=== PATIENT | female | born 1990 | race African-American/Black ===

== ENCOUNTER 2024-11-04 08:30 | Inpatient (IN) | payer MEDICAID, OTHER ==
[~2024-11-04] VITALS: Ht 167.6 cm; Wt 85.6 kg
[2024-11-04 09:36] LABS: BASOPHILS % (AUTO) 0.5 % (0.0-2.0); EOSINOPHILS % (AUTO) 0.1 % (1.0-6.0); HEMATOCRIT 39.1 % (36-46); HEMOGLOBIN 13.1 g/dL (12.0-16.0); LYMPHOCYTES % (AUTO) 19.6 % (22.0-44.0); MEAN CORPUSCULAR HEMOGLOBIN 26.5 pg (26.0-34.0); MEAN CORPUSCULAR HGB CONC 33.4 G/dL (31.0-37.0); MEAN CORPUSCULAR VOLUME 79 fL (80-100); MONOCYTES # (AUTO) 0.7 K/uL (0.1-1.0); MONOCYTES % (AUTO) 7.2 % (2.0-9.0); NEUTROPHILS # (AUTO) 7.4 K/uL (1.8-7.7); NEUTROPHILS % (AUTO) 72.6 % (40.0-70.0); PLATELET COUNT (AUTO) 416 K/uL (150-450); RED BLOOD CELL COUNT(AUTO) 4.93 MIL/uL (4.00-5.20); RED CELL DISTRIBUTION WIDTH 16.6 % (11.5-14.5); WHITE BLOOD COUNT (AUTO) 10.2 K/uL (4.5-11.0)
[2024-11-04 09:41] LABS: ANION GAP 12 mmol/L (8-16); CALCIUM, TOTAL 8.9 mg/dL (8.8-10.5); CARBON DIOXIDE 27 mmol/L (22-29); CHLORIDE 103 mmol/L (98-107); CREATININE 1.07 mg/dL (0.60-1.30); GLOMERULAR FILTR. RATE CALC > 60 mL/min (>60); GLUCOSE,RANDOM 105 mg/dL (70-110); POTASSIUM 4.1 mmol/L (3.5-5.1); SODIUM SERUM 142 mmol/L (136-145); UREA NITROGEN, BLOOD 15 mg/dL (7-18)
[2024-11-04 09:48] LABS: ALCOHOL, BLOOD (SERUM) < 3 mg/dL (0-10)
[2024-11-04] MEDS ORDERED: LORazepam 2 MG TABLET PO PRN (16:45)
[2024-11-04] MEDS ORDERED: HALOPERIDOL 5 MG TABLET PO PRN (16:45)
[2024-11-04] MEDS ORDERED: ZOLPIDEM TARTRATE 10 MG TABLET PO PRN (16:45)
[2024-11-04 17:04] LABS: COVID AG,FIA SOURCE NASAL SWAB
[2024-11-04 17:22] LABS: SARS-COV2 (COVID) ANTIGEN,FIA Negative (Negative)
[2024-11-04 18:30] VITALS: O2SAT 98
[2024-11-04] MEDS ORDERED: HALOPERIDOL LACTATE 5 MG/ML VIAL ONE (21:43)
[2024-11-04] MEDS ORDERED: DiphenhydrAMINE HCL 50 MG/ML VIAL ONE (21:43)
[2024-11-04] MEDS ORDERED: LORazepam 2 MG/ML VIAL ONE (21:43)
[2024-11-04] MEDS: HALOPERIDOL LACTATE 5 MG/ML VIAL IM ONE (21:45)
[2024-11-04] MEDS: LORazepam 2 MG/ML VIAL IM ONE (21:45)
[2024-11-04] MEDS: DiphenhydrAMINE HCL 50 MG/ML VIAL IM ONE (21:45)
[2024-11-05] MEDS ORDERED: INFLUENZA VIRUS VACCINE TVS (6MO+) 2024-25/PF 45 MCG/0.5 ML SYRINGE IM. ONE (05:45)
[2024-11-05] MEDS ORDERED: ACETAMINOPHEN 325 MG TABLET PO PRN (06:15)
[2024-11-05] MEDS ORDERED: MAGNESIUM HYDROXIDE SUSPENSION 30 ML UDCUP PO PRN (06:15)
[2024-11-05] MEDS ORDERED: CloNIDine HCL 0.1 MG TABLET PO PRN (06:15)
[2024-11-05] MEDS ORDERED: NICOTINE 14 MG/24 HOUR PATCH TD PRN (06:15)
[2024-11-05] MEDS ORDERED: ONDANSETRON 4 MG TABLET PO PRN (06:15)
[2024-11-05] MEDS ORDERED: PETROLATUM,WHITE 28 GM JELLY TP PRN (06:15)
[2024-11-05] MEDS ORDERED: IBUPROFEN 400 MG TABLET PO PRN (06:15)
[2024-11-05] MEDS ORDERED: MAG HYDROX/ALUMINUM HYD/SIMETH ES 30 ML SUSPENSION UDCUP PO PRN (06:15)
[2024-11-05] MEDS ORDERED: GuaiFENesin/D-METHORPHAN [SUGAR-FREE] 200-20MG/10 ML SYRUP UDCUP PO PRN (06:15)
[2024-11-05] MEDS ORDERED: ALBUTEROL SULFATE HFA 90 MCG/PUFF 8 GM INHALER IH PRN (06:15)
[2024-11-05] MEDS ORDERED: LOPERAMIDE HCL 2 MG CAPSULE PO PRN (06:15)
[2024-11-05] MEDS ORDERED: DOCUSATE SODIUM 100 MG CAPSULE PO PRN (06:15)
[2024-11-05 08:10] VITALS: BP 100/60; PULSE 79; RESP 16; TEMP 98; O2SAT 95
[2024-11-05 20:08] VITALS: BP 100/92; PULSE 70; RESP 19; TEMP 97.7; O2SAT 97
[2024-11-05] MEDS: ARIPiprazole 10 MG TABLET PO SCH (20:19)
[2024-11-05] MEDS: PALIPERIDONE 6 MG ER TABLET PO SCH (20:19)
[2024-11-06 08:35] VITALS: BP 87/46; PULSE 79; RESP 16; TEMP 97.6; O2SAT 96
[2024-11-06 08:54] LABS: HEMOGLOBIN A1C 5.5 % (3.8-5.6)
[2024-11-06 09:12] LABS: THYROID STIMULATING HORMONE 2.54 uIU/mL (0.36-3.74)
[2024-11-06 09:31] LABS: CHOL/HDL RATIO 2.6 (3.9-5.7)
[2024-11-06 17:39] VITALS: BP 106/54
[2024-11-06 20:12] VITALS: PULSE 94; RESP 16; TEMP 97; O2SAT 98
[2024-11-07 08:47] VITALS: BP 109/65; PULSE 77; RESP 16; TEMP 97.7; O2SAT 100
[2024-11-07] MEDS ORDERED: ARIP10TA38 PO (10:29)
[2024-11-07] MEDS ORDERED: PALI6TAB PO (10:29)
== END 2024-11-07 12:47 | disposition home or self-care (01) | DRG 750 ==
LOC: EMS 08:32 → B3A 18:10
PROVIDERS: ADMIT Psychiatry & Neurology Child & Adolescent Psychiatry; ATTEND Psychiatry & Neurology Child & Adolescent Psychiatry
PROC: GZ51ZZZ Individual Psychotherapy, Behavioral (ICD-10-PCS; principal; 2024-11-05)
DX: F20.0 Paranoid schizophrenia (principal); E66.9 Obesity, unspecified; F10.10 Alcohol abuse, uncomplicated; F15.10 Other stimulant abuse, uncomplicated; Z20.822 Contact with and (suspected) exposure to COVID-19; I10 Essential (primary) hypertension; Z79.899 Other long term (current) drug therapy; Z68.30 Body mass index [BMI] 30.0-30.9, adult
CPT/HCPCS: 80048; 80061; 83036; 84443; 84703; 85025; 96372; 99291; G0480; J1200; J1630; J2060

== ENCOUNTER 2025-03-11 22:20 | Emergency (ER) | payer MEDICAID, OTHER ==
[~2025-03-11] VITALS: Ht 165.1 cm; Wt 93.0 kg
[~2025-03-11 22:20] MED LIST: ARIP10TA38 PO; BENZ2TAB84 PO; CEPH-558 PO; PALI234D IM; PALI6TAB PO; PALI6TAB15 PO; TRAZ150T80 PO
[2025-03-12 00:12] VITALS: TEMP 98.1
[2025-03-12 00:16] LABS: COVID AG,FIA SOURCE NASAL SWAB
[2025-03-12 00:23] LABS: PH,URINE DRUG SCREEN 5.5 (5.0-8.0)
[2025-03-12 00:33] LABS: ALCOHOL, URINE DRUG SCREEN POSITIVE (NEGATIVE); AMPHET/METH SCREEN,URINE NEGATIVE (NEGATIVE); BARBITURATE SCREEN, URINE NEGATIVE (NEGATIVE); BENZODIAZEPINES SCREEN,URINE NEGATIVE (NEGATIVE); CANNABINOID SCREEN,URINE NEGATIVE (NEGATIVE); COCAINE SCREEN,URINE NEGATIVE (NEGATIVE); METHADONE SCREEN, URINE NEGATIVE (NEGATIVE); OPIATE SCREEN,URINE NEGATIVE (NEGATIVE); PHENCYCLIDINE SCREEN,URINE NEGATIVE (NEGATIVE)
[2025-03-12 00:42] LABS: SARS-COV2 (COVID) ANTIGEN,FIA Negative (Negative)
[2025-03-12] MEDS: ACETAMINOPHEN 325 MG TABLET PO ONE (01:24)
[2025-03-12 01:35] LABS: BASOPHILS % (AUTO) 0.7 % (0.0-2.0); EOSINOPHILS % (AUTO) 1.2 % (1.0-6.0); HEMATOCRIT 37.1 % (36-46); HEMOGLOBIN 12.5 g/dL (12.0-16.0); LYMPHOCYTES # (AUTO) 2.6 K/uL (1.0-4.8); MEAN CORPUSCULAR HEMOGLOBIN 26.9 pg (26.0-34.0); MEAN CORPUSCULAR HGB CONC 33.6 G/dL (31.0-37.0); MEAN CORPUSCULAR VOLUME 80 fL (80-100); MONOCYTES # (AUTO) 0.6 K/uL (0.1-1.0); MONOCYTES % (AUTO) 6.6 % (2.0-9.0); NEUTROPHILS # (AUTO) 5.6 K/uL (1.8-7.7); NEUTROPHILS % (AUTO) 62.5 % (40.0-70.0); PLATELET COUNT (AUTO) 417 K/uL (150-450); RED BLOOD CELL COUNT(AUTO) 4.64 MIL/uL (4.00-5.20); RED CELL DISTRIBUTION WIDTH 13.7 % (11.5-14.5)
[2025-03-12 01:47] LABS: ANION GAP 4 mmol/L (8-16); CALCIUM, TOTAL 9.1 mg/dL (8.8-10.5); CARBON DIOXIDE 30 mmol/L (22-29); CHLORIDE 104 mmol/L (98-107); CREATININE 0.89 mg/dL (0.60-1.30); GLOMERULAR FILTR. RATE CALC > 60 mL/min (>60); GLUCOSE,RANDOM 88 mg/dL (70-110); SODIUM SERUM 138 mmol/L (136-145); UREA NITROGEN, BLOOD 12 mg/dL (7-18)
[2025-03-12] MEDS: TraZODone HCL 50 MG TABLET PO ONE (02:32)
[2025-03-12 05:44] VITALS: BP 125/62; PULSE 71; RESP 14; O2SAT 98
== END 2025-03-12 05:44 | disposition home or self-care (01) ==
LOC: EMS 23:21
DX: F10.129 Alcohol abuse with intoxication, unspecified (principal); F20.9 Schizophrenia, unspecified; F15.90 Other stimulant use, unspecified, uncomplicated; Z79.899 Other long term (current) drug therapy; Z20.822 Contact with and (suspected) exposure to COVID-19; Y90.9 Presence of alcohol in blood, level not specified
CPT/HCPCS: 99285; 87426; 80048; 85025; 36415; 80307; G0480